=== PATIENT | female | born 1985 | race Hispanic/Latino ===

== ENCOUNTER 2017-04-10 22:49 | Emergency (ER) | payer OTHER ==
[2017-04-10 23:00] VITALS: BP 136/55; PULSE 55; RESP 16; TEMP 96.1; O2SAT 98
[2017-04-10] MEDS ORDERED: Sodium Chloride 0.9% 1,000 ML IV STA (23:03)
[2017-04-10 23:21] LABS: BASO % 0.5 % (0.0-2.0); EOS # 0.1 K/uL (0.0-0.7); EOS % 1.1 % (0.0-4.0); HEMATOCRIT 39.2 % (34.0-47.0); LYMPH # 2.4 K/uL (1.0-4.3); LYMPH % 24.6 % (20.0-40.0); MEAN CELL VOLUME 93.4 fl (81.0-99.0); MEAN CORPUSCULAR HEMOGLOBIN 32.3 pg (27.0-31.0); MEAN CORPUSCULAR HGB CONC 34.6 g/dL (33.0-37.0); MEAN PLATELET VOLUME 7.2 fl (7.2-11.7); MONO # 0.5 K/uL (0.0-0.8); MONO % 5.5 % (0.0-10.0); NEUT # 6.6 K/uL (1.8-7.0); NEUT % 68.3 % (50.0-75.0); NRBC % 0.1 % (0.0-0.0); RED CELL DISTRIBUTION WIDTH 12.5 % (11.5-14.5); WHITE BLOOD COUNT 9.7 K/uL (4.8-10.8)
[2017-04-10 23:30] LABS: ALB/GLOB RATIO 1.7 (1.0-2.1); ALKALINE PHOSPHATASE 39 U/L (38-126); ALT/SGPT 38 U/L (9-52); AST/SGOT 34 U/L (14-36); BILIRUBIN,TOTAL 0.7 mg/dl (0.2-1.3); BLOOD UREA NITROGEN 13 mg/dl (7-17); CALCIUM 9.9 mg/dL (8.4-10.2); CARBON DIOXIDE 29 mmol/L (22-30); CHLORIDE 101 mmol/L (98-107); GFR AFRICAN-AMERICAN > 60; GLUCOSE,RANDOM 107 mg/dL (65-105); LIPASE 65 U/L (23-300); POTASSIUM 4.2 MMOL/L (3.6-5.0); SODIUM 142 mmol/l (132-148); TOTAL PROTEIN 7.7 G/DL (6.3-8.2)
[2017-04-10] MEDS ORDERED: Morphine 4 MG/ML VIAL IV STA (23:31)
--- NOTE | 2017-04-10 23:50 | ED PDOC ---
HPI: Abdomen Time Seen by Provider: 04/10/17 22:55 Chief Complaint (Nursing): Abdominal Pain Chief Complaint (Provider): Epigastric abdominal pain, nausea, vomiting History Per: Patient History/Exam Limitations: no limitations Onset/Duration Of Symptoms: Hrs (4) Outside of [place] travel?: No Current Symptoms Are (Timing): Still Present Location Of Pain/Discomfort: Epigastric Quality Of Discomfort: Sharp, Stabbing Associated Symptoms: Nausea, Vomiting, Diarrhea (3 episodes of loss stool ). denies: Fever, Chills, Urinary Symptoms Exacerbating Factors: None Past Medical History Reviewed: Historical Data, Nursing Documentation, Vital Signs Vital Signs: Last Vital Signs Temp 96.1 F L 04/10/17 22:57 Pulse 55 L 04/10/17 22:57 Resp 16 04/10/17 22:57 BP 136/55 L 04/10/17 22:57 Pulse Ox 98 04/10/17 23:51 - Medical History PMH: No Chronic Diseases - Surgical History Surgical History: Appendectomy - Family History Family History: States: No Known Family Hx - Living Arrangements Living Arrangements: With Family - Social History Current smoker - smoking cessation education provided: No Alcohol: None Drugs: Denies - Home Medications Home Medications: Ambulatory Orders Medication Instructions Recorded DiphenhydrAMINE [Benadryl] 2 tab PO Q4H PRN #24 cap 09/13/15 Famotidine [Pepcid] 1 tab PO BID #10 tab 09/13/15 Prednisone 3 tab PO DAILY #12 tablet 09/13/15 - Allergies Allergies/Adverse Reactions: Allergies Allergy/AdvReac Type Severity Reaction Status Date / Time Penicillins Allergy RASH Verified 09/13/15 10:59 Review of Systems ROS Statement: Except As Marked, All Systems Reviewed And Found Negative Constitutional: Positive for: Chills. Negative for: Fever Cardiovascular: Negative for: Chest Pain Respiratory: Negative for: Shortness of Breath Gastrointestinal: Positive for: Nausea, Vomiting, Abdominal Pain. Negative for : Diarrhea Physical Exam - Reviewed Nursing Documentation Reviewed: Yes Vital Signs Reviewed: Yes - Physical Exam Appears: Positive for: Well, Non-toxic, No Acute Distress Head Exam: Positive for: ATRAUMATIC, NORMAL INSPECTION, NORMOCEPHALIC Skin: Positive for: Normal Color, Warm, DRY Eye Exam: Positive for: Normal appearance ENT: Positive for: Normal ENT Inspection Neck: Positive for: Normal, Painless ROM Cardiovascular/Chest: Positive for: Regular Rate, Rhythm Respiratory: Positive for: Normal Breath Sounds. Negative for: Accessory Muscle Use Gastrointestinal/Abdominal: Positive for: Bowel Sounds, Soft, Tenderness ( Epigastric ). Negative for: Normal Exam Back: Positive for: Normal Inspection Extremity: Positive for: Normal ROM Neurologic/Psych: Positive for: Alert, Oriented - Laboratory Results Result Diagrams: 04/10/17 23:18 04/10/17 23:18 - ECG O2 Sat by Pulse Oximetry: 98 Medical Decision Making Medical Decision Making: Pt reports continues nausea after zofran. Reglan ordered. Pt endorsed to TONEY Lea Disposition - Clinical Impression Clinical Impression: Abdominal pain - Patient ED Disposition Is Patient to be Admitted: Transfer of Care - Disposition Disposition: Transfer of Care Disposition Time: 23:51 Condition: GOOD Forms: [facility] ([place])
[2017-04-11] MEDS ORDERED: HYDROmorphone 0.5 mg/0.5 ml ISec IVP STA (00:10)
[2017-04-11] MEDS ORDERED: HYDROmorphone 0.5 mg/0.5 ml ISec ONE (00:14)
--- NOTE | 2017-04-11 00:17 | ED PDOC ---
- Laboratory Results Result Diagrams: 04/10/17 23:18 04/10/17 23:18 - ECG O2 Sat by Pulse Oximetry: 98 - Progress ED Course And Treament: Case endorsed to investigative writer from Tian ZIEGLER pending labs, u/s, re-eval EXAM: US Abdomen Limited, Right Upper Quadrant EXAM DATE/TIME: Exam ordered 04/10/2017 11:04 PM CLINICAL HISTORY: 32 years old, female; Pain; Abdominal pain; Epigastric; Additional info: Epigastric pain, vomiting TECHNIQUE: Real-time ultrasound of the right upper quadrant with image documentation. COMPARISON: No relevant prior studies available. FINDINGS: Liver: Normal. No mass. No intrahepatic bile duct dilation. Gallbladder: Gallbladder wall thickness measures approximately 2 mm. There is no stones or sludge in the gallbladder. No gallbladder wall edema is present. A negative sonographic Bailey sign is reported. Common bile duct: Common bile duct measures approximately 3 mm. No stones. No dilation. Pancreas: The pancreas is normal. Right kidney: RIGHT kidney measures 9.4 x 2.5 x 5.8 cm. No stones. No hydronephrosis. Aorta: The visualized aorta and IVC are unremarkable. IMPRESSION: Unremarkable RIGHT upper quadrant ultrasound. On re-eval, patient tolerating PO; states pain improved. Patient educated on findings, discharged with rx pepcid, zofran. Advised diet modification, fluids. Follow up PMD 2-3 days. Return to ED for worsening/concerning symptoms. Disposition - Clinical Impression Clinical Impression: Abdominal pain - POA Present On Arrival: None - Disposition Disposition: Routine/Home Disposition Time: 03:30 Condition: IMPROVED Prescriptions: Famotidine [Pepcid] 20 mg PO BID #20 tab Ondansetron ODT [Zofran ODT] 4 mg PO Q8 PRN #10 odt PRN Reason: Nausea/Vomiting Instructions: Abdominal Pain (ED) Forms: [facility] [employer] ([place])
--- NOTE | 2017-04-11 09:12 | US ---
HISTORY: Epigastric pain, vomiting COMPARISON: None. TECHNIQUE: Sonographic evaluation of the right upper quadrant of the abdomen. FINDINGS: LIVER: Measures 14.3 cm in length. Normal echogenicity of the liver parenchyma. No mass. No intrahepatic bile duct dilatation. GALLBLADDER: The gallbladder is well distended. There are no gallstones, wall thickening or pericholecystic fluid. The sonographic Bailey's sign is negative. COMMON BILE DUCT: Measures 3.3 mm. No stones. No dilatation. PANCREAS: Normal as visualized. No mass. No ductal dilatation. RIGHT KIDNEY: Measures 9.4 cm in length. Normal echogenicity. No calculus, mass, or hydronephrosis. AORTA: No aneurysmal dilatation. IVC: Unremarkable. OTHER FINDINGS: None . IMPRESSION: No cholelithiasis or biliary dilatation.
== END 2017-04-11 03:57 | disposition home or self-care (01) ==
LOC: H.ER 22:49
DX: R10.13 Epigastric pain (principal)
CPT/HCPCS: 76705; 80053; 81025; 83690; 85025; 96374; 96375; 99283; J1170; J2405; J2765; J7040